=== PATIENT | female | born 1985 | race Two or more races ===

== ENCOUNTER 2016-10-30 06:35 | Emergency (ER) | payer MEDICAID ==
[~2016-10-30] VITALS: Ht 167.6 cm; Wt 70.3 kg
[~2016-10-30 06:35] MED LIST: HYDROCODON-ACE1 EA15 ORAL; IBUPROFEN600 MG ORAL; KEFLEX500 MG ORAL; LOPERAMIDE2 MG PO; NKM; PRILOSEC OTC20 MG ORAL; ZOFRAN4 M3 ORAL
[2016-10-30] MEDS ORDERED: Ketorolac 30mg Inj IV ONE (06:45)
--- NOTE | 2016-10-30 06:57 | Emergency Room Report ---
History of Present Illness General Chief Complaint: Abdominal Pain Source: Patient Present Illness HPI Patient presents with complaints of lower suprapubic abdominal pain Initially does report of right lower quadrant the patient points more to the suprapubic area Patient reports that is 4th day of her menstrual cycle She has flareups, during her menstrual cycles patient has been told that she has fibroids Denies any fevers or chills she did have increased nausea and vomiting Denies any dysuria frequency denies any fevers or chills Patient's had a previous appendectomy Allergies: Coded Allergies: No Known Allergies (Unverified , 04/14/16) Patient History Past Medical History: see triage record Pertinent Family History: none Last Menstrual Period: october Reviewed Nursing Documentation: PMH: Agreed, PSxH: Agreed Nursing Documentation-PMH Hx Gastrointestinal Problems: Yes - Apendectomy Review of Systems All Other Systems: negative except mentioned in HPI Physical Exam Vital Signs Date Time Temp Pulse Resp B/P Pulse Ox O2 Delivery O2 Flow Rate FiO2 10/30/16 06:38 97.9 67 18 134/88 99 Room Air Sp02 EP Interpretation: reviewed, normal General Appearance: mild distress - in acute pain Head: normocephalic, atraumatic Eyes: bilateral eye EOMI, bilateral eye PERRL ENT: hearing grossly normal, normal pharynx, TMs + canals normal, uvula midline Neck: full range of motion, supple, no meningismus, no bony tend Respiratory: lungs clear, normal breath sounds, no rhonchi, no respiratory distress, no retraction, no accessory muscle use Cardiovascular #1: normal peripheral pulses, regular rate, rhythm, no edema, no gallop, no JVD, no murmur Gastrointestinal: normal bowel sounds, soft, no mass, no organomegaly, non- distended, no guarding, no hernia, no pulsatile mass, no rebound, tenderness - Lower down in the abdomen over the suprapubic area deviating to the right side Genitourinary: no CVA tenderness Musculoskeletal: normal inspection Neurologic: oriented x3, responsive, information lead III-XII nml as tested, motor strength/ tone normal, sensory intact Psychiatric: mood/affect normal Skin: normal color, no rash, warm/dry, palpation normal Lymphatic: normal inspection, no adenopathy Medical Decision Making Diagnostic Impression: Primary Impression: Abdominal pain ER Course With the patient's history and examination, multiple differentials considered, including but not limited to , ectopic , ovarian torsion, gastritis, cholecystitis, pancreatitis, appendicitis Patient has had previous appendectomy Has had several CAT scans in the past Therefore I did try to avoid this test if not needed Patient's blood work is at baseline levels her pain has significantly improved At this time given the vomiting and diarrhea likely related to infectious pathology And the patient will have initial conservative outpatient trial Labs Test 10/30/16 06:50 White Blood Count 10.6 K/UL (4.8-10.8) Red Blood Count 4.87 M/UL (4.20-5.40) Hemoglobin 14.5 G/DL (12.0-16.0) Hematocrit 42.7 % (37.0-47.0) Mean Corpuscular Volume 88 FL (80-99) Mean Corpuscular Hemoglobin 29.7 PG (27.0-31.0) Mean Corpuscular Hemoglobin Concent 33.9 G/DL (32.0-36.0) Red Cell Distribution Width 12.3 % (11.6-14.8) Platelet Count 291 K/UL (150-450) Mean Platelet Volume 7.5 FL (6.5-10.1) Neutrophils (%) (Auto) 83.2 % (45.0-75.0) Lymphocytes (%) (Auto) 11.1 % (20.0-45.0) Monocytes (%) (Auto) 5.2 % (1.0-10.0) Eosinophils (%) (Auto) 0.1 % (0.0-3.0) Basophils (%) (Auto) 0.4 % (0.0-2.0) Urine Color Pale yellow Urine Appearance Clear Urine pH 6.5 (4.5-8.0) Urine Specific [place] 1.020 (1.005-1.035) Urine Protein 1+ (NEGATIVE) Urine Glucose (UA) Negative (NEGATIVE) Urine Ketones 1+ (NEGATIVE) Urine Occult Blood 5+ (NEGATIVE) Urine Nitrite Negative (NEGATIVE) Urine Bilirubin Negative (NEGATIVE) Urine Urobilinogen Normal MG/DL (0.0-1.0) Urine Leukocyte Esterase 2+ (NEGATIVE) Urine RBC 30-40 /HPF (0 - 2) Urine WBC 5-10 /HPF (0 - 2) Urine Squamous Epithelial Cells Few /LPF (NONE/OCC) Urine Bacteria Few /HPF (NONE) Urine HCG, Qualitative Negative Sodium Level 141 mEQ/L (135-145) Potassium Level 3.6 mEQ/L (3.4-4.9) Chloride Level 100 mEQ/L (98-107) Carbon Dioxide Level 25 mEQ/L (20-30) Anion Gap 16 (5-15) Blood Urea Nitrogen 8 mg/dL (7-23) Creatinine 0.7 mg/dL (0.5-0.9) Estimat Glomerular Filtration Rate > 60 mL/min (>60) Glucose Level 116 mg/dL (74-106) Calcium Level 9.3 mg/dL (8.6-10.2) Total Bilirubin 0.3 mg/dL (0.0-1.2) Aspartate Amino Transf (AST/SGOT) 18 U/L (5-40) Alanine Aminotransferase (ALT/SGPT) 19 U/L (3-33) Alkaline Phosphatase 74 U/L (35-104) Total Protein 7.5 g/dL (6.6-8.7) Albumin 4.6 g/dL (3.5-5.2) Globulin 2.9 g/dL Albumin/Globulin Ratio 1.5 (1.0-2.7) Lipase 26 U/L (< 60) Last Vital Signs Date Time Temp Pulse Resp B/P Pulse Ox O2 Delivery O2 Flow Rate FiO2 10/30/16 06:38 97.9 67 18 134/88 99 Room Air Status: improved Disposition: HOME, SELF-CARE Condition: Improved Scripts Acetaminophen With Codeine (T#3) (TYLENOL #3 TAB*) Y Tab 1 TAB ORAL Q8H Y for For Pain, #10 TAB Prov: NAN MARTNIEZ.O. 10/30/16 Ibuprofen* (MOTRIN*) 600 Mg Tablet 600 MG ORAL Q8H Y for For Pain, #20 TAB 0 Refills Prov: NAN MARTINEZ.OArianna 10/30/16 Nitrofurantoin Monohyd/M-Cryst* (MACROBID 100 MG*) 100 Mg Capsule 100 MG ORAL EVERY 12 HOURS for 5 Days, CAP Prov: NAN MARTINEZ.OArianna 10/30/16 Additional Instructions: Patient is provided with the discharge instructions notified to follow up with primary doctor in the next 2-3 days otherwise return to the er with any worsening symptoms. Please note that this report is being documented using [employer] technology. This can lead to erroneous entry secondary to incorrect interpretation by the dictating instrument. NAN MARTINEZ D.O. October 30, 2016 06:57
[2016-10-30] MEDS ORDERED: Tubing IV Cassette IV ONE (06:59)
[2016-10-30 07:09] LABS: BASOPHILS % (AUTO) 0.4 % (0.0-2.0); EOSINOPHILS % (AUTO) 0.1 % (0.0-3.0); LYMPHOCYTES % (AUTO) 11.1 % (20.0-45.0); MEAN CORPUSCULAR HEMOGLOBIN 29.7 PG (27.0-31.0); MEAN CORPUSCULAR HGB CONC 33.9 G/DL (32.0-36.0); MEAN CORPUSCULAR VOLUME 88 FL (80-99); MEAN PLATELET VOLUME 7.5 FL (6.5-10.1); MONOCYTES % (AUTO) 5.2 % (1.0-10.0); NEUTROPHILS % (AUTO) 83.2 % (45.0-75.0); PLATELET COUNT 291 K/UL (150-450); RED BLOOD COUNT 4.87 M/UL (4.20-5.40); RED CELL DISTRIBUTION WIDTH 12.3 % (11.6-14.8); WHITE BLOOD COUNT 10.6 K/UL (4.8-10.8)
[2016-10-30 07:13] LABS: APPEARANCE,URINE CLEAR; KETONES,URINE 1+ (NEGATIVE); LEUKOCYTE ESTERASE ,URINE 2+ (NEGATIVE); NITRITE,URINE NEGATIVE (NEGATIVE); PH,URINE 6.5 (4.5-8.0); PROTEIN,URINE 1+ (NEGATIVE); UROBILINOGEN,URINE NORMAL MG/DL (0.0-1.0)
[2016-10-30 07:21] LABS: ALANINE AMINOTRANSFERASE 19 U/L (3-33); ALBUMIN/GLOBULIN RATIO 1.5 (1.0-2.7); ANION GAP 16 (5-15); ASPARTATE AMINO TRANSFERASE 18 U/L (5-40); CALCIUM 9.3 mg/dL (8.6-10.2); CARBON DIOXIDE 25 mEQ/L (20-30); CHLORIDE 100 mEQ/L (98-107); CREATININE 0.7 mg/dL (0.5-0.9); GLOMERULAR FILTRATION RATE > 60 mL/min (>60); HEMOLYSIS 0; LIPASE 26 U/L (< 60); POTASSIUM 3.6 mEQ/L (3.4-4.9); SODIUM 141 mEQ/L (135-145); TOTAL PROTEIN 7.5 g/dL (6.6-8.7)
[2016-10-30] MEDS ORDERED: Morphine Sulfate 4mg/ml Inj IVP ONE (07:30)
[2016-10-30 07:31] LABS: RBC,URINE 30-40 /HPF (0 - 2)
[2016-10-30 07:32] LABS: BACTERIA,URINE FEW /HPF; SQUAMOUS EPITHELIAL CELL,UR FEW /LPF (NONE/OCC)
[2016-10-30] MEDS ORDERED: NITROFURANTOIN100 M2 ORAL (08:09)
[2016-10-30] MEDS ORDERED: ACETAMINOPHEN-1 EAC1 ORAL (08:09)
[2016-10-30] MEDS ORDERED: IBUPROFEN600 MG ORAL (08:09)
[2016-10-30 08:30] VITALS: BP 118/69
[2016-10-30 09:15] VITALS: BP 118/69
[2016-10-31] MEDS ORDERED: KEFLEX500 MG ORAL (18:45)
[2016-10-31] MEDS ORDERED: ZOFRAN4 M3 ORAL (18:46)
== END 2016-10-30 09:15 | disposition home or self-care (01) ==
LOC: EMR 06:50
DX: R10.30 Lower abdominal pain, unspecified (principal); Z90.49 Acquired absence of other specified parts of digestive tract
CPT/HCPCS: 36415; 80053; 81003; 81025; 83690; 85025; 96360; 96374; 96375; 99284; J1885; J2270; J2405; J7040

== ENCOUNTER 2016-10-31 16:17 | Emergency (ER) | payer MEDICAID ==
[~2016-10-31] VITALS: Ht 167.6 cm; Wt 70.3 kg
[~2016-10-31 16:17] MED LIST changes: +ACETAMINOPHEN-1 EAC1 ORAL; +NITROFURANTOIN100 M2 ORAL
--- NOTE | 2016-10-31 16:41 | Emergency Room Report ---
History of Present Illness General Chief Complaint: Abdominal Pain Source: Patient Present Illness HPI This is a 31-year-old female who presented after having increased abdominal pain. Patient having increased of burning sensation to her epigastric area associated with vomiting. Patient reported having recently been in the hospital for similar symptoms. Patient given prescription for codeine as well as antibiotics for urinary tract infection. Patient had reportedly been vomiting. She denied hematemesis. She denied any bloody stools. Patient reported having prior history of renal stones. She stated she is currently on her menses. Allergies: Coded Allergies: No Known Allergies (Unverified , 04/14/16) Patient History Past Medical History: see triage record Last Menstrual Period: 10/31/2016 Reviewed Nursing Documentation: PMH: Agreed, PSxH: Agreed Nursing Documentation-PMH Past Medical History: No Stated History Hx Gastrointestinal Problems: Yes - Apendectomy, gastritis Review of Systems All Other Systems: negative except mentioned in HPI Physical Exam Vital Signs Date Time Temp Pulse Resp B/P Pulse Ox O2 Delivery O2 Flow Rate FiO2 10/31/16 16:24 97.2 55 19 143/82 100 Sp02 EP Interpretation: reviewed, normal General Appearance: normal inspection, well appearing, no apparent distress, alert, GCS 15, non-toxic Head: atraumatic ENT: normal ENT inspection, hearing grossly normal, normal voice Neck: normal inspection, full range of motion, supple, no bony tend Respiratory: normal inspection, lungs clear, normal breath sounds, no respiratory distress, no retraction, no wheezing Cardiovascular #1: regular rate, rhythm, no edema Gastrointestinal: normal inspection, normal bowel sounds, non tender, soft, no guarding, no hernia Genitourinary: no CVA tenderness Musculoskeletal: normal inspection, back normal, normal range of motion Neurologic: normal inspection, alert, responsive, speech normal Psychiatric: normal inspection, judgement/insight normal, mood/affect normal Skin: normal inspection, normal color, no rash Medical Decision Making Diagnostic Impression: Primary Impression: Abdominal pain Additional Impression: UTI (urinary tract infection) ER Course Patient presented for abdominal pain. Differential diagnoses included ischemic bowel, appendicitis, perforated viscus, abdominal aortic aneurysm, inferior myocardial infarction, viral gastroenteritis Because of complexity of patient's case laboratory testing and imaging studies were ordered. The patient was given IV pain medications as well as IV antibiotics. Patient was given prescription for antiemetics. The patient does not appear to have a surgical abdomen at this time. Patient's pain appears to be related to urinary tract infection. The patient was given prescription for antiemetics. She is advised to followup with her primary care physician in the next one to 2 days for recheck. The patient was given return precautions. Labs Test 10/31/16 16:40 White Blood Count 12.2 K/UL (4.8-10.8) Red Blood Count 4.54 M/UL (4.20-5.40) Hemoglobin 14.6 G/DL (12.0-16.0) Hematocrit 40.5 % (37.0-47.0) Mean Corpuscular Volume 89 FL (80-99) Mean Corpuscular Hemoglobin 32.1 PG (27.0-31.0) Mean Corpuscular Hemoglobin Concent 36.0 G/DL (32.0-36.0) Red Cell Distribution Width 12.1 % (11.6-14.8) Platelet Count 258 K/UL (150-450) Mean Platelet Volume 6.7 FL (6.5-10.1) Neutrophils (%) (Auto) 75.8 % (45.0-75.0) Lymphocytes (%) (Auto) 14.8 % (20.0-45.0) Monocytes (%) (Auto) 7.7 % (1.0-10.0) Eosinophils (%) (Auto) 0.9 % (0.0-3.0) Basophils (%) (Auto) 0.7 % (0.0-2.0) Urine Color Yellow Urine Appearance Clear Urine pH 6.5 (4.5-8.0) Urine Specific [place] 1.015 (1.005-1.035) Urine Protein 1+ (NEGATIVE) Urine Glucose (UA) Negative (NEGATIVE) Urine Ketones 1+ (NEGATIVE) Urine Occult Blood 4+ (NEGATIVE) Urine Nitrite Negative (NEGATIVE) Urine Bilirubin Negative (NEGATIVE) Urine Urobilinogen Normal MG/DL (0.0-1.0) Urine Leukocyte Esterase 2+ (NEGATIVE) Urine RBC 2-4 /HPF (0 - 2) Urine WBC 5-10 /HPF (0 - 2) Urine Squamous Epithelial Cells Moderate /LPF (NONE/OCC) Urine Bacteria Few /HPF (NONE) Urine HCG, Qualitative Negative Sodium Level 141 mEQ/L (135-145) Potassium Level 3.5 mEQ/L (3.4-4.9) Chloride Level 102 mEQ/L (98-107) Carbon Dioxide Level 27 mEQ/L (20-30) Anion Gap 12 (5-15) Blood Urea Nitrogen 10 mg/dL (7-23) Creatinine 0.8 mg/dL (0.5-0.9) Estimat Glomerular Filtration Rate > 60 mL/min (>60) Glucose Level 110 mg/dL (74-106) Calcium Level 8.9 mg/dL (8.6-10.2) Total Bilirubin 0.3 mg/dL (0.0-1.2) Aspartate Amino Transf (AST/SGOT) 20 U/L (5-40) Alanine Aminotransferase (ALT/SGPT) 17 U/L (3-33) Alkaline Phosphatase 65 U/L (35-104) Total Protein 6.7 g/dL (6.6-8.7) Albumin 3.9 g/dL (3.5-5.2) Globulin 2.8 g/dL Albumin/Globulin Ratio 1.3 (1.0-2.7) Lipase 45 U/L (< 60) Last Vital Signs Date Time Temp Pulse Resp B/P Pulse Ox O2 Delivery O2 Flow Rate FiO2 10/31/16 16:24 97.2 55 19 143/82 100 Status: improved Disposition: HOME, SELF-CARE Condition: Stable Scripts Ondansetron* (ZOFRAN*) 4 Mg Tablet 4 MG ORAL Q6H Y for Nausea & Vomiting, #20 TAB Prov: Miah Lea 10/31/16 Cephalexin* (KEFLEX*) 500 Mg Capsule 500 MG ORAL Q6H, #28 CAP 0 Refills Prov: Miah Lea 10/31/16 Miah Lea October 31, 2016 16:41
[2016-10-31] MEDS ORDERED: Ketorolac 30mg Inj IV ONE (16:45)
[2016-10-31] MEDS ORDERED: Famotidine 20 MG/ 2ML VIAL IVP ONE (16:45)
[2016-10-31 16:59] LABS: BASOPHILS % (AUTO) 0.7 % (0.0-2.0); EOSINOPHILS % (AUTO) 0.9 % (0.0-3.0); LYMPHOCYTES % (AUTO) 14.8 % (20.0-45.0); MEAN CORPUSCULAR HEMOGLOBIN 32.1 PG (27.0-31.0); MEAN CORPUSCULAR VOLUME 89 FL (80-99); MEAN PLATELET VOLUME 6.7 FL (6.5-10.1); MONOCYTES % (AUTO) 7.7 % (1.0-10.0); NEUTROPHILS % (AUTO) 75.8 % (45.0-75.0); PLATELET COUNT 258 K/UL (150-450); RED BLOOD COUNT 4.54 M/UL (4.20-5.40); RED CELL DISTRIBUTION WIDTH 12.1 % (11.6-14.8); WHITE BLOOD COUNT 12.2 K/UL (4.8-10.8)
[2016-10-31 17:09] LABS: APPEARANCE,URINE CLEAR; KETONES,URINE 1+ (NEGATIVE); LEUKOCYTE ESTERASE ,URINE 2+ (NEGATIVE); NITRITE,URINE NEGATIVE (NEGATIVE); PH,URINE 6.5 (4.5-8.0); PROTEIN,URINE 1+ (NEGATIVE); UROBILINOGEN,URINE NORMAL MG/DL (0.0-1.0)
[2016-10-31 17:16] LABS: BACTERIA,URINE FEW /HPF; SQUAMOUS EPITHELIAL CELL,UR MODERATE /LPF (NONE/OCC)
[2016-10-31 17:17] LABS: ALANINE AMINOTRANSFERASE 17 U/L (3-33); ALBUMIN/GLOBULIN RATIO 1.3 (1.0-2.7); ANION GAP 12 (5-15); ASPARTATE AMINO TRANSFERASE 20 U/L (5-40); CALCIUM 8.9 mg/dL (8.6-10.2); CARBON DIOXIDE 27 mEQ/L (20-30); CHLORIDE 102 mEQ/L (98-107); CREATININE 0.8 mg/dL (0.5-0.9); GLOMERULAR FILTRATION RATE > 60 mL/min (>60); HEMOLYSIS 7; LIPASE 45 U/L (< 60); POTASSIUM 3.5 mEQ/L (3.4-4.9); SODIUM 141 mEQ/L (135-145); TOTAL PROTEIN 6.7 g/dL (6.6-8.7)
[2016-10-31] MEDS ORDERED: cefTRIAXone 1 GM in NS 55 ML IVPB ONE (17:30)
[2016-10-31 18:00] VITALS: BP 143/75
[2016-10-31] MEDS ORDERED: Morphine Sulfate 4mg/ml Inj IVP ONE (18:00)
[2016-10-31] MEDS ORDERED: KEFLEX500 MG ORAL (18:45)
[2016-10-31] MEDS ORDERED: ZOFRAN4 M3 ORAL (18:46)
[2016-10-31 18:57] VITALS: BP 127/67
== END 2016-10-31 18:59 | disposition home or self-care (01) ==
LOC: EMR 16:59
DX: R10.9 Unspecified abdominal pain (principal); N39.0 Urinary tract infection, site not specified; R11.10 Vomiting, unspecified; Z87.442 Personal history of urinary calculi; Z90.89 Acquired absence of other organs
CPT/HCPCS: 36415; 80053; 81003; 81025; 83690; 85025; 96360; 96374; 96375; 99284; J0696; J1885; J2270; J2405; S0028

== ENCOUNTER 2016-11-29 16:03 | Emergency (ER) | payer MEDICAID ==
[~2016-11-29] VITALS: Ht 167.6 cm; Wt 70.3 kg
[2016-11-29] MEDS ORDERED: Ketorolac 30mg Inj IM ONE (16:30)
[2016-11-29 16:43] LABS: APPEARANCE,URINE CLOUDY; KETONES,URINE 2+ (NEGATIVE); LEUKOCYTE ESTERASE ,URINE 1+ (NEGATIVE); NITRITE,URINE NEGATIVE (NEGATIVE); PH,URINE 5 (4.5-8.0); PROTEIN,URINE 2+ (NEGATIVE); UROBILINOGEN,URINE NORMAL MG/DL (0.0-1.0)
[2016-11-29 17:10] LABS: RBC,URINE TNTC /HPF (0 - 2)
[2016-11-29 17:13] LABS: BACTERIA,URINE MODERATE /HPF; SQUAMOUS EPITHELIAL CELL,UR FEW /LPF (NONE/OCC)
[2016-11-29] MEDS ORDERED: IBUPROFEN600 MG ORAL (17:43)
[2016-11-29] MEDS ORDERED: NITROFURANTOIN100 M2 ORAL (17:43)
[2016-11-29] MEDS ORDERED: Ketorolac 30mg Inj IV ONE (17:45)
[2016-11-29 18:20] VITALS: BP 131/78
--- NOTE | 2016-11-29 20:03 | Emergency Room Report ---
History of Present Illness General Chief Complaint: Abdominal Pain Source: Patient Present Illness HPI The patient is a 31-year-old female with a history of uterine fibroids and ovarian cysts presenting for abdominal pain and increased vaginal bleeding during menstruation. The patient states that she frequently has painful menstruations and this feels the same. The patient was seen in this emergency department for the same complaint 3 months prior and workup was unremarkable. The patient was told to followup with [facility] but she has not been able to. She has tried Tylenol at home which has not helped. Pain described as a 10 out of 10 dull ache to the mid lower abdomen and does not radiate. Pain is constant. No known provoking or relieving factors. Denies any other symptoms including N, V, F, chills, flank pain, diarrhea, constipation Allergies: Coded Allergies: No Known Allergies (Unverified , 04/14/16) Patient History Past Medical History: see triage record Pertinent Family History: none Last Menstrual Period: now Now: No Reviewed Nursing Documentation: PMH: Agreed, PSxH: Agreed Nursing Documentation-PMH Past Medical History: No History, Except For Hx Gastrointestinal Problems: Yes - Apendectomy, gastritis Review of Systems All Other Systems: negative except mentioned in HPI Physical Exam Vital Signs Date Time Temp Pulse Resp B/P Pulse Ox O2 Delivery O2 Flow Rate FiO2 11/29/16 16:06 98.4 64 18 132/67 98 Room Air Sp02 EP Interpretation: reviewed, normal General Appearance: no apparent distress, alert, GCS 15, non-toxic Head: normocephalic, atraumatic Eyes: bilateral eye PERRL, bilateral eye normal inspection ENT: hearing grossly normal, normal pharynx, no angioedema, normal voice Neck: full range of motion, supple/symm/no masses Respiratory: chest non-tender, lungs clear, normal breath sounds, speaking full sentences Gastrointestinal: normal bowel sounds, soft, non-distended, no guarding, no rebound, tenderness - Suprapubic Genitourinary: normal inspection, no CVA tenderness Musculoskeletal: back normal, gait/station normal, normal range of motion, non- tender Neurologic: alert, oriented x3, responsive, motor strength/tone normal, sensory intact, speech normal Psychiatric: judgement/insight normal, memory normal, mood/affect normal, no suicidal/homicidal ideation Skin: normal color, no rash, warm/dry, well hydrated Lymphatic: no adenopathy Medical Decision Making PA Attestation Dr. Hernandez is my supervising physician. Patient management was discussed with my supervising physician Diagnostic Impression: Primary Impression: Dysmenorrhea ER Course The patient is a 31-year-old female presenting with increased pain and vaginal bleeding during menstruation DDx considered but not limited to: UTI, fibroids, STD, ovarian cyst, dysmenorrhea, , among others PE: Vitals WNL. NAD. Abdomen: Normal appearance. Non distended. No ecchymosis. Normal BS. TTP over suprapubic region only. No McBurney point tenderness. No guarding. No CVA tenderness UA shows blood, WBCs, and moderate bacteria Pt is given IV Toradol for pain and will be HI'ed home with prescription for macrobid and motrin. She need sto FU with PMD and OBGYN. ER precautions given Laboratory Tests Test 11/29/16 16:12 Urine Color Pale yellow Urine Appearance Cloudy Urine pH 5 (4.5-8.0) Urine Specific [place] 1.020 (1.005-1.035) Urine Protein 2+ (NEGATIVE) H Urine Glucose (UA) Negative (NEGATIVE) Urine Ketones 2+ (NEGATIVE) H Urine Occult Blood 5+ (NEGATIVE) H Urine Nitrite Negative (NEGATIVE) Urine Bilirubin Negative (NEGATIVE) Urine Urobilinogen Normal MG/DL (0.0-1.0) Urine Leukocyte Esterase 1+ (NEGATIVE) H Urine RBC Tntc /HPF (0 - 2) H Urine WBC 10-15 /HPF (0 - 2) H Urine Squamous Epithelial Cells Few /LPF (NONE/OCC) Urine Bacteria Moderate /HPF (NONE) H Urine HCG, Qualitative Negative Lab Results Impression UA: blood, 10-15 WBCs, and moderate bacteria. Negative nitrites. Neg preg Last Vital Signs Date Time Temp Pulse Resp B/P Pulse Ox O2 Delivery O2 Flow Rate FiO2 11/29/16 18:20 98.4 43 16 131/78 98 Room Air Status: improved Disposition: HOME, SELF-CARE Condition: Improved Scripts Nitrofurantoin Monohyd/M-Cryst* (MACROBID 100 MG*) 100 Mg Capsule 100 MG ORAL EVERY 12 HOURS, #14 CAP Prov: TERZIAN,RHETT P.A. 11/29/16 Ibuprofen* (MOTRIN*) 600 Mg Tablet 600 MG ORAL Q8H Y for For Pain, #30 TAB 0 Refills Prov: RHETT DE PAZ 11/29/16 Patient Instructions: Abdominal Pain, Adult, Dysmenorrhea Additional Instructions: I discussed my findings with the patient. All questions and concerns have been answered. Treatment and medication compliance have been addressed. I advised the patient that they need to follow up with PMD in 3-5 days. Return to ED if symptoms worsen, new symptoms arise, or if needed for any reason. Patient verbalized understanding of discharge instructions. Patient will follow up with OBGYN as soon as possible RHETT DE PAZ Nov 29, 2016 20:03
== END 2016-11-29 18:20 | disposition home or self-care (01) ==
LOC: EMR 16:30
DX: N94.6 Dysmenorrhea, unspecified (principal); Z90.89 Acquired absence of other organs
CPT/HCPCS: 81003; 81025; 87086; 96374; 99284; J1885

== ENCOUNTER 2017-05-02 10:04 | Emergency (ER) | payer MEDICAID ==
[~2017-05-02] VITALS: Ht 167.6 cm; Wt 70.3 kg
[2017-05-02 10:10] VITALS: BP 124/79
--- NOTE | 2017-05-02 10:38 | Emergency Room Report ---
History of Present Illness General Chief Complaint: Abdominal Pain Source: Patient Present Illness HPI Patient presents with complaints of pain to the suprapubic lower abdominal region Pain started during her menstrual cycle however her menstrual cycle ended and the patient has continued with the discomfort denies any chest pain or shortness of breath Patient in the suprapubic area does go toward the back Patient denies any dysuria however complain of some vaginal discharge patient reports that she was seen by her primary physician and has referral for gynecology Denies any fall or trauma Allergies: Coded Allergies: No Known Allergies (Unverified , 04/14/16) Patient History Past Medical History: see triage record Pertinent Family History: none Last Menstrual Period: 04/19/17 Now: No Reviewed Nursing Documentation: PMH: Agreed, PSxH: Agreed Nursing Documentation-PMH Hx Gastrointestinal Problems: Yes - S/P appy 15 years ago Review of Systems All Other Systems: negative except mentioned in HPI Physical Exam Vital Signs Date Time Temp Pulse Resp B/P (MAP) Pulse Ox O2 Delivery O2 Flow Rate FiO2 05/02/17 10:07 98.1 69 16 126/85 98 Room Air Sp02 EP Interpretation: reviewed, normal General Appearance: well appearing, no apparent distress Head: normocephalic, atraumatic Eyes: bilateral eye PERRL, bilateral eye EOMI ENT: hearing grossly normal, normal pharynx, TMs + canals normal, uvula midline Neck: full range of motion, supple, no meningismus, no bony tend Respiratory: lungs clear, normal breath sounds, no rhonchi, no respiratory distress, no retraction, no accessory muscle use Cardiovascular #1: normal peripheral pulses, regular rate, rhythm, no edema, no gallop, no JVD, no murmur Gastrointestinal: normal bowel sounds, non tender, soft, no mass, no organomegaly, non-distended, no guarding, no hernia, no pulsatile mass, no rebound Genitourinary: no CVA tenderness Musculoskeletal: normal inspection Neurologic: oriented x3, responsive, mri assistant III-XII nml as tested, motor strength/ tone normal, sensory intact Psychiatric: mood/affect normal Skin: normal color, no rash, warm/dry, palpation normal Lymphatic: normal inspection, no adenopathy Medical Decision Making Diagnostic Impression: Primary Impression: Abdominal pain Additional Impression: UTI (urinary tract infection) ER Course With the patient's history and examination, multiple differentials considered, including but not limited to , ectopic , ovarian torsion, gastritis, cholecystitis, pancreatitis, appendicitis Patient has had previous CAT scan imaging her Patient also reports previous ultrasonography and history of fibroids At this time a urine sample does show small amount of bacteria Given the radiation towards the back she was treated with antibiotics Patient is understanding of the need for close outpatient gynecology followup Labs Test 05/02/17 10:20 05/02/17 10:38 Urine Color Pale yellow Urine Appearance Clear Urine pH 5 (4.5-8.0) Urine Specific [place] 1.020 (1.005-1.035) Urine Protein Negative (NEGATIVE) Urine Glucose (UA) Negative (NEGATIVE) Urine Ketones Negative (NEGATIVE) Urine Occult Blood 1+ (NEGATIVE) Urine Nitrite Negative (NEGATIVE) Urine Bilirubin Negative (NEGATIVE) Urine Urobilinogen Normal MG/DL (0.0-1.0) Urine Leukocyte Esterase 2+ (NEGATIVE) Urine RBC 0-2 /HPF (0 - 2) Urine WBC 2-4 /HPF (0 - 2) Urine Squamous Epithelial Cells Moderate /LPF (NONE/OCC) Urine Bacteria Few /HPF (NONE) Urine Mucus Few /LPF (NONE/OCC) Urine HCG, Qualitative Negative White Blood Count 7.0 K/UL (4.8-10.8) Red Blood Count 4.92 M/UL (4.20-5.40) Hemoglobin 14.6 G/DL (12.0-16.0) Hematocrit 45.1 % (37.0-47.0) Mean Corpuscular Volume 92 FL (80-99) Mean Corpuscular Hemoglobin 29.6 PG (27.0-31.0) Mean Corpuscular Hemoglobin Concent 32.3 G/DL (32.0-36.0) Red Cell Distribution Width 12.1 % (11.6-14.8) Platelet Count 297 K/UL (150-450) Mean Platelet Volume 6.2 FL (6.5-10.1) Neutrophils (%) (Auto) 49.0 % (45.0-75.0) Lymphocytes (%) (Auto) 39.1 % (20.0-45.0) Monocytes (%) (Auto) 9.3 % (1.0-10.0) Eosinophils (%) (Auto) 1.6 % (0.0-3.0) Basophils (%) (Auto) 1.0 % (0.0-2.0) Sodium Level 138 MMOL/L (136-145) Potassium Level 5.3 MMOL/L (3.5-5.1) Chloride Level 104 MMOL/L (98-107) Carbon Dioxide Level 26 MMOL/L (21-32) Anion Gap 8 mmol/L (5-15) Blood Urea Nitrogen 13 mg/dL (7-18) Creatinine 0.7 MG/DL (0.55-1.30) Estimat Glomerular Filtration Rate > 60 mL/min (>60) Glucose Level 81 MG/DL (74-106) Calcium Level 9.3 MG/DL (8.5-10.1) Last Vital Signs Date Time Temp Pulse Resp B/P (MAP) Pulse Ox O2 Delivery O2 Flow Rate FiO2 05/02/17 10:07 98.1 69 16 126/85 98 Room Air Status: improved Disposition: HOME, SELF-CARE Condition: Improved Scripts Ibuprofen* (MOTRIN*) 600 Mg Tablet 600 MG ORAL Q8H Y for For Pain, #20 TAB 0 Refills Prov: NAN MARTINEZ D.O. 05/02/17 Trimethoprim/Sulfamethoxazole 160/800* (BACTRIM DS TABLET*) 1 Each Tablet 1 TAB ORAL Q12H, #14 TAB 0 Refills Prov: NAN MARTINEZ D.O. 05/02/17 Referrals: NON PHYSICIAN (PCP) Additional Instructions: Patient is provided with the discharge instructions notified to follow up with primary doctor in the next 2-3 days otherwise return to the er with any worsening symptoms. Please note that this report is being documented using [employer] technology. This can lead to erroneous entry secondary to incorrect interpretation by the dictating instrument. NAN MARTINEZ D.O. May 02, 2017 10:37
[2017-05-02] MEDS ORDERED: Ketorolac 60mg Inj IM ONE (10:45)
[2017-05-02] MEDS ORDERED: Norco 10mg/325mg tab ORAL ONE (10:45)
[2017-05-02 10:48] LABS: APPEARANCE,URINE CLEAR; BILIRUBIN, URINE NEGATIVE (NEGATIVE); COLOR,URINE PALE YELLOW; GLUCOSE, URINE (UA) NEGATIVE (NEGATIVE); KETONES,URINE NEGATIVE (NEGATIVE); NITRITE,URINE NEGATIVE (NEGATIVE); PH,URINE 5 (4.5-8.0); PROTEIN,URINE NEGATIVE (NEGATIVE); UROBILINOGEN,URINE NORMAL MG/DL (0.0-1.0)
[2017-05-02 10:49] LABS: EOSINOPHILS % (AUTO) 1.6 % (0.0-3.0); HEMATOCRIT 45.1 % (37.0-47.0); HEMOGLOBIN 14.6 G/DL (12.0-16.0); LYMPHOCYTES % (AUTO) 39.1 % (20.0-45.0); MEAN CORPUSCULAR VOLUME 92 FL (80-99); MONOCYTES % (AUTO) 9.3 % (1.0-10.0); PLATELET COUNT 297 K/UL (150-450); RED BLOOD COUNT 4.92 M/UL (4.20-5.40); RED CELL DISTRIBUTION WIDTH 12.1 % (11.6-14.8)
[2017-05-02 11:00] LABS: LEUKOCYTE ESTERASE ,URINE 2+ (NEGATIVE)
[2017-05-02 11:01] LABS: ANION GAP 8 mmol/L (5-15); BLOOD UREA NITROGEN 13 mg/dL (7-18); CALCIUM 9.3 MG/DL (8.5-10.1); CARBON DIOXIDE 26 MMOL/L (21-32); CHLORIDE 104 MMOL/L (98-107); CREATININE 0.7 MG/DL (0.55-1.30); POTASSIUM 5.3 MMOL/L (3.5-5.1); SODIUM 138 MMOL/L (136-145)
[2017-05-02 12:04] VITALS: BP 120/77
[2017-05-02] MEDS ORDERED: BACTRIM DS TAB1 EAC1 ORAL (12:39)
[2017-05-02] MEDS ORDERED: IBUPROFEN600 MG ORAL (12:39)
[2017-05-02 12:45] VITALS: BP 120/77
== END 2017-05-02 12:45 | disposition home or self-care (01) ==
LOC: EMR 10:31
DX: R10.30 Lower abdominal pain, unspecified (principal); N39.0 Urinary tract infection, site not specified
CPT/HCPCS: 36415; 80048; 81003; 81025; 85025; 96372; 99283

== ENCOUNTER 2017-06-28 13:48 | Emergency (ER) | payer MEDICAID ==
[~2017-06-28] VITALS: Ht 167.6 cm; Wt 78.5 kg
[~2017-06-28 13:48] MED LIST changes: +BACTRIM DS TAB1 EAC1 ORAL
[2017-06-28 14:31] LABS: APPEARANCE,URINE CLEAR; BILIRUBIN, URINE NEGATIVE (NEGATIVE); COLOR,URINE PALE YELLOW; GLUCOSE, URINE (UA) NEGATIVE (NEGATIVE); KETONES,URINE NEGATIVE (NEGATIVE); LEUKOCYTE ESTERASE ,URINE 3+ (NEGATIVE); NITRITE,URINE NEGATIVE (NEGATIVE); PH,URINE 6 (4.5-8.0); PROTEIN,URINE NEGATIVE (NEGATIVE); UROBILINOGEN,URINE NORMAL MG/DL (0.0-1.0)
[2017-06-28 15:10] LABS: BASOPHILS % (AUTO) 0.5 % (0.0-2.0); EOSINOPHILS % (AUTO) 0.8 % (0.0-3.0); HEMOGLOBIN 13.7 G/DL (12.0-16.0); MEAN CORPUSCULAR VOLUME 88 FL (80-99); MONOCYTES % (AUTO) 10.3 % (1.0-10.0); NEUTROPHILS % (AUTO) 58.5 % (45.0-75.0); PLATELET COUNT 269 K/UL (150-450); RED BLOOD COUNT 4.65 M/UL (4.20-5.40); RED CELL DISTRIBUTION WIDTH 12.3 % (11.6-14.8)
[2017-06-28 15:24] LABS: ANION GAP 9 mmol/L (5-15); BLOOD UREA NITROGEN 9 mg/dL (7-18); CALCIUM 8.3 MG/DL (8.5-10.1); CARBON DIOXIDE 26 MMOL/L (21-32); CHLORIDE 103 MMOL/L (98-107); CREATININE 0.7 MG/DL (0.55-1.30); POTASSIUM 3.5 MMOL/L (3.5-5.1); SODIUM 138 MMOL/L (136-145)
[2017-06-28 15:27] LABS: ALANINE AMINOTRANSFERASE 33 U/L (12-78); ALBUMIN 3.7 G/DL (3.4-5.0); ALBUMIN/GLOBULIN RATIO 0.9 (1.0-2.7); ALKALINE PHOSPHATASE 61 U/L (46-116); ASPARTATE AMINO TRANSFERASE 21 U/L (15-37); BILIRUBIN,TOTAL 0.4 MG/DL (0.2-1.0)
[2017-06-28] MEDS ORDERED: FLAGYL500 MG ORAL (17:17)
[2017-06-28] MEDS ORDERED: PRENATAL VITAM1 EACH PO (17:17)
[2017-06-28 17:40] VITALS: BP 124/76
--- NOTE | 2017-06-28 22:55 | Emergency Room Report ---
History of Present Illness General Chief Complaint: Complications Source: Patient Present Illness HPI The patient is a 31-year-old female at approximately 4 weeks gestation by dates presenting for abdominal pain and vaginal bleeding since yesterday. She states that abdominal pain is a cramping sensation described as a 5/10. Does not radiate from the mid lower abdomen. She has also been having a white vaginal discharge with foul odor for the past week. Vaginal bleeding described as bright red blood on toilet paper with wiping. She has not had any discharge. She denies dysuria or back pain. She denies any other symptoms including fever or chills Allergies: Coded Allergies: No Known Allergies (Unverified , 04/14/16) Patient History Past Medical History: see triage record Pertinent Family History: none Last Menstrual Period: 05/17/17 Now: Yes - Approx 4 weeks. : 3 Para: 2 Reviewed Nursing Documentation: PMH: Agreed, PSxH: Agreed Nursing Documentation-PMH Hx Gastrointestinal Problems: Yes - Appendectomy Review of Systems All Other Systems: negative except mentioned in HPI Physical Exam Vital Signs Date Time Temp Pulse Resp B/P (MAP) Pulse Ox O2 Delivery O2 Flow Rate FiO2 06/28/17 14:04 97.9 70 19 122/79 99 Room Air Sp02 EP Interpretation: reviewed, normal General Appearance: no apparent distress, alert, GCS 15, non-toxic Head: normocephalic, atraumatic Eyes: bilateral eye normal inspection, bilateral eye PERRL ENT: hearing grossly normal, normal pharynx, no angioedema, normal voice Cardiovascular #1: regular rate, rhythm, no edema Gastrointestinal: normal bowel sounds, soft, non-distended, no guarding, no rebound, tenderness - suprapubic Genitourinary: normal inspection, no CVA tenderness Musculoskeletal: back normal, gait/station normal, normal range of motion, non- tender Neurologic: alert, oriented x3, responsive, motor strength/tone normal, sensory intact, speech normal Psychiatric: judgement/insight normal, memory normal, mood/affect normal, no suicidal/homicidal ideation Skin: normal color, no rash, warm/dry, well hydrated Medical Decision Making PA Attestation Dr. Daugherty is my supervising physician. Patient management was discussed with my supervising physician Diagnostic Impression: Primary Impression: Bacterial vaginosis Additional Impression: Threatened miscarriage ER Course The patient is a 31-year-old female at approximately 4 weeks gestation by dates presenting for abdominal pain and vaginal bleeding since yesterday Differential diagnoses considered include but not limited to Early , threatened , incomplete ,ectopic , hemorrhagic cyst, BV , UTI, among others PE: NAD Abdomen is soft. There is tenderness to palpation over suprapubic region only. 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 No adnexal mass. No pole is seen. Beta-hCG appropriate for gestational age. Otherwise labs unremarkable The patient was informed of these results and needs to followup with her OB as soon as possible. This must be done within 2 days. She needs repeat testing done. She agrees with this plan. She will return to emergency Department if she is unable to followup with her OB. ER precautions are given She'll be treated for BV due to white vaginal discharge, foul odor, and white blood cells with some squamous cells Laboratory Tests Test 06/28/17 14:13 06/28/17 14:55 Urine Color Pale yellow Urine Appearance Clear Urine pH 6 (4.5-8.0) Urine Specific [place] 1.015 (1.005-1.035) Urine Protein Negative (NEGATIVE) Urine Glucose (UA) Negative (NEGATIVE) Urine Ketones Negative (NEGATIVE) Urine Occult Blood 3+ (NEGATIVE) H Urine Nitrite Negative (NEGATIVE) Urine Bilirubin Negative (NEGATIVE) Urine Urobilinogen Normal MG/DL (0.0-1.0) Urine Leukocyte Esterase 3+ (NEGATIVE) H Urine RBC 2-4 /HPF (0 - 2) H Urine WBC 5-10 /HPF (0 - 2) H Urine Squamous Epithelial Cells Moderate /LPF (NONE/OCC) H Urine Bacteria Few /HPF (NONE) White Blood Count 8.0 K/UL (4.8-10.8) Red Blood Count 4.65 M/UL (4.20-5.40) Hemoglobin 13.7 G/DL (12.0-16.0) Hematocrit 41.0 % (37.0-47.0) Mean Corpuscular Volume 88 FL (80-99) Mean Corpuscular Hemoglobin 29.6 PG (27.0-31.0) Mean Corpuscular Hemoglobin Concent 33.6 G/DL (32.0-36.0) Red Cell Distribution Width 12.3 % (11.6-14.8) Platelet Count 269 K/UL (150-450) Mean Platelet Volume 6.3 FL (6.5-10.1) L Neutrophils (%) (Auto) 58.5 % (45.0-75.0) Lymphocytes (%) (Auto) 30.0 % (20.0-45.0) Monocytes (%) (Auto) 10.3 % (1.0-10.0) H Eosinophils (%) (Auto) 0.8 % (0.0-3.0) Basophils (%) (Auto) 0.5 % (0.0-2.0) Prothrombin Time 9.8 SEC (9.30-11.50) Prothrombin Time INR 1.0 (0.9-1.1) PTT 28 SEC (23-33) Sodium Level 138 MMOL/L (136-145) Potassium Level 3.5 MMOL/L (3.5-5.1) Chloride Level 103 MMOL/L (98-107) Carbon Dioxide Level 26 MMOL/L (21-32) Anion Gap 9 mmol/L (5-15) Blood Urea Nitrogen 9 mg/dL (7-18) Creatinine 0.7 MG/DL (0.55-1.30) Estimate Glomerular Filtration Rate > 60 mL/min (>60) Glucose Level 68 MG/DL (74-106) L Calcium Level 8.3 MG/DL (8.5-10.1) L Total Bilirubin 0.4 MG/DL (0.2-1.0) Aspartate Amino Transferase (AST) 21 U/L (15-37) Alanine Aminotransferase (ALT) 33 U/L (12-78) Alkaline Phosphatase 61 U/L (46-116) Total Protein 7.6 G/DL (6.4-8.2) Albumin 3.7 G/DL (3.4-5.0) Globulin 3.9 g/dL Albumin/Globulin Ratio 0.9 (1.0-2.7) L Lipase 132 U/L (73-393) Human Chorionic Gonadotropin, Quant 79138 mIU/mL (1-6) H Lab Results Impression Blood work unremarkable. Beta hCG appropriate for gestational age. 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 No adnexal mass. No pole is seen Last Vital Signs Date Time Temp Pulse Resp B/P (MAP) Pulse Ox O2 Delivery O2 Flow Rate FiO2 06/28/17 17:40 98.0 80 18 124/76 100 Room Air Status: improved Disposition: HOME, SELF-CARE Condition: Improved Scripts Vits W-Ca,Fe,Fa(<1MG) ( VITAMINS) 1 Each Tablet 1 EACH PO DAILY, #30 TAB Prov: RHETT DE PAZ P.A. 06/28/17 Metronidazole* (FLAGYL*) 500 Mg Tablet 500 MG ORAL Q12HR, #14 TAB Prov: RHETT DE PAZ P.A. 06/28/17 Patient Instructions: Bacterial Vaginosis Additional Instructions: I discussed my findings with the patient. All questions and concerns have been answered. Treatment and medication compliance have been addressed. I informed the patient that she needs to followup with her OB doctor as soon as possible for further evaluation. She will need repeat testing as well as repeat ultrasound. The ultrasound report was given to the patient.. Return to emergency Department if you notice any symptoms including continued or worsened bleeding, abdominal pain, or for any other reason RHETT DE PAZ Jun 28, 2017 22:55
--- NOTE | 2017-06-29 12:04 | Diagnostic Imaging Report ---
Indication: Positive test. Pelvic pain. Vaginal spotting Read LMP 05/17/2017. Beta hCG approximately 25,000 Technique: Grayscale and duplex Doppler imaging of the pelvis performed utilizing a transabdominal scan and endovaginal scan. Comparison: None Findings: The uterus measures 0.5 x 7.6 x 5.1 cm. 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 2 gestational sacs are noted, one in each of the uterine horns. No yolk sac or pole is identified in either gestational sac. Gestational age by gestational sac diameter corresponding to approximally 5 weeks. A probable fibroid at the fundus of one of the moieties measures up to 3.5 cm in diameter. The right ovary measures 4.1 x 4.2 x 2 cm/18.3 mL. The left ovary measures 4.2 x 3.7 x 2.4 centers/19.6 mL. There is a cyst with lacy internal echoes in the left ovary which measures up to 3.2 cm in diameter compatible with a hemorrhagic cyst. Color-flow to the bilateral ovaries is noted. There is no evidence to suggest ovarian torsion at this time. Trace free fluid is noted in the cul-de-sac. 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 Each horn of the uterus contains a gestational sac possibly representing twin . No pole or yolk sac is noted in either gestational sac at this time, possibly related to early stage of . Trended beta-HCG and [employer] follow-up with short-term interval repeat ultrasound recommended. Probable hemorrhagic cyst in the left ovary. No evidence to suggest ovarian torsion at this time. Small amount of free fluid in the pelvis.
== END 2017-06-28 17:53 | disposition home or self-care (01) ==
LOC: EMR 14:20
DX: O20.0 Threatened abortion (principal); Z3A.01 Less than 8 weeks gestation of pregnancy; O23.591 Infection of other part of genital tract in pregnancy, first trimester; B96.89 Other specified bacterial agents as the cause of diseases classified elsewhere
CPT/HCPCS: 36415; 76801; 76830; 80053; 81003; 83690; 84702; 85025; 85610; 85730; 86850; 86900; 86901; 96360; 99284

== ENCOUNTER 2017-10-03 12:37 | Emergency (ER) | payer MEDICAID ==
[~2017-10-03] VITALS: Ht 167.6 cm; Wt 71.2 kg
[~2017-10-03 12:37] MED LIST changes: +FLAGYL500 MG ORAL; +PRENATAL VITAM1 EACH PO
--- NOTE | 2017-10-03 13:37 | Emergency Room Report ---
History of Present Illness General Chief Complaint: Lower Back Pain or Injury Present Illness HPI 32 YO Female presents to the emergency department complaining of 8/10 in severity Left sided low back pain x 1 day. Patient reports history of back pain with associated herniated disc. Patient states she has had sciatica in the past however her symptoms are usually on the right side. Patient states that she has been doing a lot of housework lately. Patient reports that she is 13 weeks . She denies fevers, chills or recent spinal procedure. Patient denies abdominal pain, nausea, vomiting. Patient states that her symptoms are dependent on certain movements or sitting up a certain way. Patient reports some soreness/tenderness as well. Denies trauma or fall. Denies dysuria, hematuria, urinary frequency or urgency. Denies numbness tingling or loss of sensation or gross motor movements of the extremities, incontinence of bowel or bladder. Denies CP, Palpitations, LOC, AMS, dizziness, Changes in Vision, Sensation, paresthesias, or a sudden severe headache. Allergies: Coded Allergies: No Known Allergies (Unverified , 04/14/16) Patient History Past Medical History: see triage record Past Surgical History: none Pertinent Family History: none Reviewed Nursing Documentation: PMH: Agreed; PSxH: Agreed Nursing Documentation-PMH Hx Gastrointestinal Problems: Yes - Appendectomy Review of Systems All Other Systems: negative except mentioned in HPI Physical Exam Vital Signs Date Time Temp Pulse Resp B/P (MAP) Pulse Ox O2 Delivery O2 Flow Rate FiO2 10/03/17 12:45 98.1 79 20 111/68 97 Room Air 98.1 Medical Decision Making PA Attestation Dr. Lea is my supervising Physician whom patient management has been discussed with. Diagnostic Impression: Primary Impression: Low back pain during Qualified Codes: O26.892 - Other specified related conditions, second trimester; M54.5 - Low back pain ER Course 32 YO Female presents to the emergency department complaining of 8/10 in severity Left sided low back pain x 1 day. Patient reports history of back pain with associated herniated disc. Patient states she has had sciatica in the past however her symptoms are usually on the right side. Patient states that she has been doing a lot of housework lately. Patient reports that she is 13 weeks . She denies fevers, chills or recent spinal procedure. Patient denies abdominal pain, nausea, vomiting. Patient states that her symptoms are dependent on certain movements or sitting up a certain way. Patient reports some soreness/tenderness as well. Denies trauma or fall. Denies dysuria, hematuria, urinary frequency or urgency. Denies numbness tingling or loss of sensation or gross motor movements of the extremities, incontinence of bowel or bladder. Denies CP, Palpitations, LOC, AMS, dizziness, Changes in Vision, Sensation, paresthesias, or a sudden severe headache. Ddx considered: epidural abscess, fracture, sprain/strain, meningitis, renal stone, spinal chord injury. Vital signs reviewed and are WNL during ED visit. - Pt verbalized right sided pain however she is referring to her left side during physical exam. HPI has been adjusted to reflect the correct side of her symptoms. Pt. is afebrile with no signs of infection, non-toxic in appearance. No hx of Disk herniation and lumbar pain. No saddle anesthesia noted, Pt. denies incontinence Neurovascular is intact Pt. has FROM with intermittent exacerbations of her pain during the process. * Mild Tenderness to palpation to paraspinal muscles of the lower back, no spinous process tenderness, no midline tenderness. Most tenderness is palpated just above the left PSIS. ORDERS: none warranted at this time. INTERVENTIONS: - Tylenol PO D/W Pt. To F/u with her OBGYN/PCP regarding pain management if her symptoms continue to get exacerbated during her . DISCHARGE: At this time pt. is stable for d/c to home. Will provide printed patient care instructions, and any necessary prescriptions. Care plan and follow up instructions have been discussed with the patient prior to discharge. Last Vital Signs Date Time Temp Pulse Resp B/P (MAP) Pulse Ox O2 Delivery O2 Flow Rate FiO2 10/03/17 12:45 98.1 79 20 111/68 97 Room Air 98.1 Disposition: XFER SNF Condition: Stable Scripts Hydrocodone Bit/Acetaminophen 5-325* (NORCO 5-325*) 1 Each Tablet 1 TAB ORAL Q6H PRN for For Pain, #4 TAB 0 Refills Prov: Kimberly Peres P.A. 10/03/17 Acetaminophen* (TYLENOL EXTRA STRENGTH*) 500 Mg Tablet 500 MG ORAL Q6H, #20 TAB 0 Refills Prov: Kimberly Peres P.A. 10/03/17 Lidocaine (Lidoderm) 1 Each Adh..patch 1 PATCH TOPIC DAILY, #30 PATCH 0 Refills Patch(es) may remain in place for up to 12 hours in any 24-hour period. Prov: Kimberly Peres 10/03/17 Patient Instructions: Back Pain in , Back Pain, Adult Additional Instructions: Take medications as directed. - Only Take [place] for severe pain, [place] has Tylenol in it, so be mindful of taking any additional Tylenol products. Follow up with a OBGYN within 3 days, even if your symptoms have resolved. Return sooner to ED if new symptoms occur, or current symptoms become worse. - Do not Drive if you take [place] and this medication can cause dizziness. - Please note that this Emergency Department Report was dictated using [employer] technology software, occasionally this can lead to erroneous entry secondary to interpretation by the dictation equipment. Kimberly Peres Oct 03, 2017 13:37
[2017-10-03] MEDS ORDERED: TYLENOL EXTRA500 MG ORAL (13:47)
[2017-10-03] MEDS ORDERED: LIDODERM700 M1 TOPIC (13:47)
[2017-10-03] MEDS ORDERED: NORCO 5-325 TA1 EACH ORAL (13:47)
[2017-10-03 14:02] VITALS: BP 121/70
== END 2017-10-03 14:02 ==
LOC: EMR 13:25
DX: O26.892 Other specified pregnancy related conditions, second trimester (principal); M54.5 Low back pain; Z90.89 Acquired absence of other organs; Z3A.13 13 weeks gestation of pregnancy
CPT/HCPCS: 99284

== ENCOUNTER 2017-11-02 18:14 | Emergency (ER) | payer MEDICAID ==
[~2017-11-02] VITALS: Ht 167.6 cm; Wt 83.0 kg
[~2017-11-02 18:14] MED LIST changes: +LIDODERM700 M1 TOPIC; +NORCO 5-325 TA1 EACH ORAL; +TYLENOL EXTRA500 MG ORAL
[2017-11-02 18:42] VITALS: BP 121/65
--- NOTE | 2017-11-02 19:06 | Emergency Room Report ---
History of Present Illness General Chief Complaint: Flu Like Symptoms Source: Patient Present Illness HPI 32yo F at 22wk gestation p/w mylgias, sore throat, abdominal pain, crampy, diffuse, and subjective fever x 2days Reports her OB is Manuel Zamorano Requests we transfer to [facility] L&D Allergies: Coded Allergies: No Known Allergies (Unverified , 04/14/16) Patient History Past Medical History: see triage record Now: Yes : 3 Para: 3 Reviewed Nursing Documentation: PMH: Agreed; PSxH: Agreed Nursing Documentation-PMH Past Medical History: No History, Except For Hx Gastrointestinal Problems: Yes - Appendectomy Review of Systems All Other Systems: negative except mentioned in HPI Physical Exam Vital Signs Date Time Temp Pulse Resp B/P (MAP) Pulse Ox O2 Delivery O2 Flow Rate FiO2 11/02/17 18:19 99.0 107 22 121/65 97 Room Air 99.0 Sp02 EP Interpretation: reviewed, normal General Appearance: no apparent distress, alert, non-toxic Head: normocephalic Eyes: bilateral eye normal inspection, bilateral eye PERRL, bilateral eye EOMI ENT: normal ENT inspection, hearing grossly normal, normal pharynx, no angioedema, normal voice, moist mucus membranes Neck: normal inspection, full range of motion, supple, supple/symm/no masses Respiratory: chest non-tender, lungs clear, normal breath sounds, chest symmetrical, palpation of chest normal Cardiovascular #1: normal peripheral pulses, regular rate, rhythm Cardiovascular #2: 2+ radial (R), 2+ radial (L) Gastrointestinal: normal inspection, soft, no guarding, no rebound, distended Rectal: deferred Genitourinary: normal inspection, no CVA tenderness Musculoskeletal: back normal, gait/station normal, normal range of motion, non- tender, no calf tenderness Neurologic: alert, responsive, remarketing rep III-XII nml as tested, motor strength/tone normal, sensory intact, speech normal Psychiatric: judgement/insight normal, memory normal, mood/affect normal, no suicidal/homicidal ideation Skin: normal color, no rash, warm/dry, normal turgor Lymphatic: no adenopathy Medical Decision Making Diagnostic Impression: Primary Impression: Abdominal pain ER Course I spoke with OB line construction supervisor at [facility], Dr. Miller, who accepted the patient to L& D for labor evaluation Pt agrees and wants transfer Last Vital Signs Date Time Temp Pulse Resp B/P (MAP) Pulse Ox O2 Delivery O2 Flow Rate FiO2 11/02/17 18:42 107 22 Room Air 11/02/17 18:42 99.0 121/65 97 99.0 Status: unchanged Disposition: XFER SHT-TRM HOSP Condition: Stable Referrals: [facility],REFERRING (PCP) JUANY THOMAS M.D November 02, 2017 19:05
[2017-11-02 20:20] VITALS: BP 123/66
[2017-11-02 23:58] VITALS: BP 123/66
== END 2017-11-02 23:59 | disposition short-term general hospital (02) ==
LOC: EMR 18:37
DX: O26.892 Other specified pregnancy related conditions, second trimester (principal); Z3A.22 22 weeks gestation of pregnancy; R10.9 Unspecified abdominal pain; Z90.49 Acquired absence of other specified parts of digestive tract
CPT/HCPCS: 99285

== ENCOUNTER 2018-11-30 14:13 | Emergency (ER) | payer MEDICAID ==
[~2018-11-30] VITALS: Ht 167.6 cm; Wt 71.2 kg
--- NOTE | 2018-11-30 14:28 | Emergency Room Report ---
History of Present Illness General Chief Complaint: Chest Pain Source: Patient Present Illness HPI 33-year-old female with no medical problems, is 9 months , complaining of 3-week history of intermittent left-sided parasternal sharp, nonradiating mild to moderate intensity chest pains. More severe this morning, also had about yesterday, and has been having nearly daily bouts of it for the past 3 weeks. Patient cannot think of any inciting or exacerbating factors such as positioning, breathing, p.o. intake; she reports the duration lasts minutes to over an hour, and seems to be relieved when patient states still relaxes, and drinks an herbal tea. She denies any hemoptysis, leg swelling, leg pain, syncope, recent travel, major surgeries, OCP, exogenous estrogen use. Allergies: Coded Allergies: No Known Allergies (Unverified , 04/14/16) Patient History Past Medical History: see triage record Now: No Reviewed Nursing Documentation: PMH: Agreed; PSxH: Agreed Nursing Documentation-PMH Hx Gastrointestinal Problems: Yes - Appendectomy, hernia repair Review of Systems All Other Systems: negative except mentioned in HPI Physical Exam Sp02 EP Interpretation: reviewed, normal General Appearance: no apparent distress, alert, non-toxic Head: normocephalic Eyes: bilateral eye normal inspection, bilateral eye PERRL, bilateral eye EOMI ENT: normal ENT inspection, hearing grossly normal, normal pharynx, no angioedema, normal voice, moist mucus membranes Neck: normal inspection, full range of motion, supple, supple/symm/no masses Respiratory: chest non-tender, lungs clear, normal breath sounds, chest symmetrical, palpation of chest normal Cardiovascular #1: normal peripheral pulses, regular rate, rhythm Cardiovascular #2: 2+ radial (R), 2+ radial (L) Gastrointestinal: normal inspection, non tender, soft, no mass, no guarding, no rebound Rectal: deferred Genitourinary: normal inspection, no CVA tenderness Musculoskeletal: back normal, gait/station normal, normal range of motion, non- tender, no calf tenderness, Usama's Sign negative Neurologic: alert, responsive, fireproof door assembler III-XII nml as tested, motor strength/tone normal, sensory intact, speech normal Psychiatric: judgement/insight normal, memory normal, mood/affect normal, anxious Skin: normal color, no rash, warm/dry, normal turgor Lymphatic: no adenopathy Medical Decision Making Diagnostic Impression: Primary Impression: Chest pain ER Course Patient is PERC rule negative for PE, I do not suspect acute coronary syndrome, do not suspect aortic dissection, she is extremely well-appearing, slightly anxious, currently think she is having about a 5 out of 10 pain that was about a 10 out of 10 prior to arrival that seems to have improved without any obvious rhyme or reason. She has been having this pain nearly daily for the past few weeks, she does report she has had a heavy period recently, and she is supposed to be on iron supplementation but has been noncompliant. I doubt she is acutely anemic enough to receive a transfusion, and it is difficult to say whether or not this is contributing to her chest pain, as it appears to be a nonexertional chest pain that she is experiencing. I have higher suspicion for anxiety mediated symptomatology, EKG, labs, chest x-ray all unremarkable, will discharge home with reassurance, recommendation to be compliant with her iron supplementation, and follow-up with PMD within the next week or to return to the ER if symptoms recur and persist. EKG Diagnostic Results EKG Time: 14:47 EP Interpretation: no STEMI, normal axis Rate: normal Rhythm: NSR ST Segments: no acute changes ASA given to the pt in ED: No Rhythm Strip Diag. Results Rhythm Strip Time: 14:57 EP Interpretation: yes Rate: 64 Rhythm: NSR, no PVC's, no ectopy Chest X-Ray Diagnostic Results Chest X-Ray Diagnostic Results : Chest X-Ray Ordered: Yes # of Views/Limited/Complete: 1 View Indication: Chest Pain Interpretation: no consolidation, no effusion, no pneumothorax, no acute cardiopulmonary disease Impression: No acute disease Electronically Signed by: Juany Thomas MD Disposition: HOME, SELF-CARE Condition: Stable JUANY THOMAS M.D Nov 30, 2018 14:28
[2018-11-30 14:40] LABS: BASOPHILS % (AUTO) 0.5 % (0.0-2.0); EOSINOPHILS % (AUTO) 1.4 % (0.0-3.0); HEMATOCRIT 35.1 % (37.0-47.0); LYMPHOCYTES % (AUTO) 26.9 % (20.0-45.0); MEAN CORPUSCULAR VOLUME 80 FL (80-99); MONOCYTES % (AUTO) 7.6 % (1.0-10.0); NEUTROPHILS % (AUTO) 63.5 % (45.0-75.0); PLATELET COUNT 332 K/UL (150-450); RED BLOOD COUNT 4.38 M/UL (4.20-5.40); WHITE BLOOD COUNT 9.2 K/UL (4.8-10.8)
[2018-11-30 14:48] LABS: ANION GAP 9 mmol/L (5-15); BLOOD UREA NITROGEN 10 mg/dL (7-18); CALCIUM 9.5 MG/DL (8.5-10.1); CARBON DIOXIDE 26 MMOL/L (21-32); CHLORIDE 103 MMOL/L (98-107); CREATININE 0.8 MG/DL (0.55-1.30); POTASSIUM 3.7 MMOL/L (3.5-5.1); SODIUM 138 MMOL/L (136-145)
[2018-11-30 14:53] LABS: ALANINE AMINOTRANSFERASE 28 U/L (12-78); ALBUMIN 3.9 G/DL (3.4-5.0); ALKALINE PHOSPHATASE 73 U/L (46-116); ASPARTATE AMINO TRANSFERASE 20 U/L (15-37); BILIRUBIN,TOTAL 0.3 MG/DL (0.2-1.0)
[2018-11-30 14:59] VITALS: BP 109/70
[2018-11-30] MEDS ORDERED: IBUPROFEN600 MG ORAL (15:01)
[2018-11-30 15:25] VITALS: BP 110/63
--- NOTE | 2018-12-01 17:46 | Diagnostic Imaging Report ---
Indication: Dyspnea Comparison: None A single view chest radiograph was obtained. Findings: Cardiomediastinal appearance is within normal limits for age. The lungs are clear. Pulmonary vascularity is appropriate. The diaphragmatic contour is smooth and costophrenic angles are sharp. No pleural effusions are identified. The bones are unremarkable. Impression: No acute findings
== END 2018-11-30 15:25 | disposition home or self-care (01) ==
LOC: EMR 14:45
DX: R07.9 Chest pain, unspecified (principal); Z90.49 Acquired absence of other specified parts of digestive tract
CPT/HCPCS: 36415; 71045; 80053; 84484; 85025; 93005; 99283

== ENCOUNTER 2019-12-09 17:51 | Emergency (ER) | payer MEDICAID, OTHER ==
[~2019-12-09] VITALS: Ht 167.6 cm; Wt 77.1 kg
[2019-12-09 18:15] VITALS: BP 123/76
--- NOTE | 2019-12-09 18:15 | NUR ---
ED Nurse Note: Pt ambulated to ED from home d/t vomiting and abdominal pain started this morning. Pt is AOx4, calm and cooperative. Per pt, today's her 4th day of menstruation. Placed on bed, daughter at bedside.
[2019-12-09] MEDS ORDERED: Morphine Sulfate 4mg/ml Inj (IV USE ONLY) IVP ONE (18:30)
[2019-12-09] MEDS ORDERED: DiphenhydrAMINE 50mg/ml Inj IVP ONE (18:30)
[2019-12-09] MEDS ORDERED: Metoclopramide 10mg/2ml Inj IVP ONE (18:30)
--- NOTE | 2019-12-09 18:34 | Emergency Room Report ---
History of Present Illness General Chief Complaint: Abdominal Pain Source: Patient Present Illness HPI Patient presents with right lower quadrant abdominal pain that radiates to her back that began yesterday. She tried taking 400 mg ibuprofen and this did not help. She has had pain similar to this but not this severe not radiating related to ovarian cysts and also fibroids. She is on day 4 for menstruation. It is regular time for her. She does not believe she is . She denies any fevers or chills. There is no dysuria or vaginal discharge. She in a monogamous relationship. Patient came today because she is vomiting and cannot keep anything down. There is no blood or coffee grounds. She denies change in her bowels. The pain is rated 10/10, constant pressure and somewhat burning. She denies fevers or chills. No sore throat, chest pain, palpitations, shortness of breath, joint pain, rashes, depression, anxiety, visual changes, dizziness, headache. Her daughter is being seen for diaper rash. Allergies: Coded Allergies: No Known Allergies (Unverified , 04/14/16) COVID-19 Screening Contact w/high risk pt: No Recent Travel to affected area: No Experienced COVID-19 symptoms?: No COVID-19 Testing performed BUYER GRAIN: No Patient History Social History: Denies: smoking Social History Narrative Here with and children. 3-year-old being seen for diaper dermatitis Last Menstrual Period: on her period Now: No Reviewed Nursing Documentation: PMH: Agreed; PSxH: Agreed Nursing Documentation-PMH Past Medical History: No History, Except For Hx Gastrointestinal Problems: Yes - Appendectomy, hernia repair Review of Systems All Other Systems: negative except mentioned in HPI Physical Exam Vital Signs Date Time Temp Pulse Resp B/P (MAP) Pulse Ox O2 Delivery O2 Flow Rate FiO2 12/09/19 18:02 99.0 78 20 123/76 (92) 96 Room Air Sp02 EP Interpretation: reviewed, normal General Appearance: well appearing, no apparent distress, GCS 15, non-toxic Head: normocephalic, atraumatic Eyes: bilateral eye normal inspection, bilateral eye PERRL, bilateral eye EOMI ENT: moist mucus membranes Neck: supple Respiratory: lungs clear, normal breath sounds Cardiovascular #1: regular rate, rhythm Cardiovascular #2: 2+ radial (R) Gastrointestinal: normal inspection, normal bowel sounds, no mass, non- distended, no guarding, no rebound, tenderness - Reported right lower quadrant Genitourinary: no CVA tenderness Musculoskeletal: back normal, normal range of motion, gait/station normal Neurologic: alert, oriented x3, grossly normal Psychiatric: mood/affect normal Skin: no rash, warm/dry Medical Decision Making Diagnostic Impression: Primary Impression: Pelvic pain Additional Impressions: Fibroid Hemorrhagic ovarian cyst UTI (urinary tract infection) Qualified Codes: N39.0 - Urinary tract infection, site not specified ER Course Patient presents with right lower quadrant pain rating to her back. Differential includes ectopic , pyelonephritis, ovarian cyst, uterine fibroids, PID amongst others. She is afebrile at this time and therefore PID is less likely. Evaluation with labs and ultrasound. The patient received IV hydration admit metoclopramide, Benadryl and morphine. If test is negative she will may be given ketorolac also if she still has pain. White count normal. Slight anemia. CMP normal. Lipase normal. test negative. Pyuria and hematuria (recent ending of her.). Ultrasound performed revealing fibroid and hemorrhagic ovarian cyst. Patient's pain resolved. Discussed findings with patient and need for follow-up. Patient stable for outpatient observation admission and treatment. Laboratory Tests Test 12/09/19 18:44 White Blood Count 10.5 K/UL (4.8-10.8) Red Blood Count 4.51 M/UL (4.20-5.40) Hemoglobin 10.5 G/DL (12.0-16.0) L Hematocrit 35.0 % (37.0-47.0) L Mean Corpuscular Volume 78 FL (80-99) L Mean Corpuscular Hemoglobin 23.2 PG (27.0-31.0) L Mean Corpuscular Hemoglobin Concent 29.8 G/DL (32.0-36.0) L Red Cell Distribution Width 17.0 % (11.6-14.8) H Platelet Count 330 K/UL (150-450) Mean Platelet Volume 6.7 FL (6.5-10.1) Neutrophils (%) (Auto) 75.1 % (45.0-75.0) H Lymphocytes (%) (Auto) 17.4 % (20.0-45.0) L Monocytes (%) (Auto) 6.5 % (1.0-10.0) Eosinophils (%) (Auto) 0.4 % (0.0-3.0) Basophils (%) (Auto) 0.6 % (0.0-2.0) Urine Color Yellow Urine Appearance Cloudy Urine pH 7 (4.5-8.0) Urine Specific [place] 1.015 (1.005-1.035) Urine Protein 2+ (NEGATIVE) H Urine Glucose (UA) Negative (NEGATIVE) Urine Ketones 4+ (NEGATIVE) H Urine Blood 5+ (NEGATIVE) H Urine Nitrite Negative (NEGATIVE) Urine Bilirubin Negative (NEGATIVE) Urine Urobilinogen Normal MG/DL (0.0-1.0) Urine Leukocyte Esterase 1+ (NEGATIVE) H Urine RBC 40-60 /HPF (0 - 2) H Urine WBC 10-15 /HPF (0 - 2) H Urine Squamous Epithelial Cells Moderate /LPF (NONE/OCC) H Urine Bacteria Moderate /HPF (NONE) H Urine Mucus Few /LPF (NONE/OCC) H Sodium Level 140 MMOL/L (136-145) Potassium Level 3.8 MMOL/L (3.5-5.1) Chloride Level 103 MMOL/L (98-107) Carbon Dioxide Level 24 MMOL/L (21-32) Anion Gap 13 mmol/L (5-15) Blood Urea Nitrogen 12 mg/dL (7-18) Creatinine 0.9 MG/DL (0.55-1.30) Estimated Glomerular Filtration Rate > 60 mL/min (>60) Glucose Level 100 MG/DL (74-106) Calcium Level 8.9 MG/DL (8.5-10.1) Total Bilirubin 0.3 MG/DL (0.2-1.0) Aspartate Amino Transferase (AST) 20 U/L (15-37) Alanine Aminotransferase (ALT) 28 U/L (12-78) Alkaline Phosphatase 67 U/L (46-116) Total Protein 7.5 G/DL (6.4-8.2) Albumin 4.0 G/DL (3.4-5.0) Globulin 3.5 g/dL Albumin/Globulin Ratio 1.1 (1.0-2.7) Lipase 92 U/L (73-393) CT/MRI/US Diagnostic Results CT/MRI/US Diagnostic Results : Imaging Test Ordered: Pelvic ultrasound Impression IMPRESSION: 1. Fibroid uterus. 2. Hemorrhagic left ovarian follicle. Last Vital Signs Date Time Temp Pulse Resp B/P (MAP) Pulse Ox O2 Delivery O2 Flow Rate FiO2 12/09/19 22:10 98.9 68 12 125/75 100 Room Air Status: improved Disposition: HOME, SELF-CARE Condition: Improved Scripts Ondansetron Odt* (ZOFRAN ODT*) 4 Mg Tab.rapdis 4 MG BC EVERY 8 HOURS, #6 TAB 0 Refills Prov: Ricardo Daugherty MD 12/09/19 Ibuprofen* (MOTRIN*) 600 Mg Tablet 600 MG ORAL Q6H PRN for FOR PAIN, #16 TAB 0 Refills Prov: Ricardo Daugherty MD 12/09/19 Nitrofurantoin Monohyd/M-Cryst* (MACROBID 100 MG*) 100 Mg Capsule 100 MG ORAL EVERY 12 HOURS, #14 CAP Prov: Ricardo Daugherty MD 12/09/19 Ricardo Daugherty MD Dec 09, 2019 18:34
[2019-12-09 18:57] LABS: APPEARANCE,URINE CLOUDY; BILIRUBIN, URINE NEGATIVE (NEGATIVE); GLUCOSE, URINE (UA) NEGATIVE (NEGATIVE); KETONES,URINE 4+ (NEGATIVE); LEUKOCYTE ESTERASE ,URINE 1+ (NEGATIVE); NITRITE,URINE NEGATIVE (NEGATIVE); PH,URINE 7 (4.5-8.0); PROTEIN,URINE 2+ (NEGATIVE); UROBILINOGEN,URINE NORMAL MG/DL (0.0-1.0)
[2019-12-09 19:05] LABS: COLOR,URINE YELLOW
[2019-12-09 19:06] LABS: BASOPHILS % (AUTO) 0.6 % (0.0-2.0); EOSINOPHILS % (AUTO) 0.4 % (0.0-3.0); HEMOGLOBIN 10.5 G/DL (12.0-16.0); LYMPHOCYTES % (AUTO) 17.4 % (20.0-45.0); MEAN CORPUSCULAR VOLUME 78 FL (80-99); MONOCYTES % (AUTO) 6.5 % (1.0-10.0); NEUTROPHILS % (AUTO) 75.1 % (45.0-75.0); PLATELET COUNT 330 K/UL (150-450); RED BLOOD COUNT 4.51 M/UL (4.20-5.40); WHITE BLOOD COUNT 10.5 K/UL (4.8-10.8)
[2019-12-09 19:10] LABS: ANION GAP 13 mmol/L (5-15); BLOOD UREA NITROGEN 12 mg/dL (7-18); CALCIUM 8.9 MG/DL (8.5-10.1); CARBON DIOXIDE 24 MMOL/L (21-32); CHLORIDE 103 MMOL/L (98-107); CREATININE 0.9 MG/DL (0.55-1.30); POTASSIUM 3.8 MMOL/L (3.5-5.1); SODIUM 140 MMOL/L (136-145)
--- NOTE | 2019-12-09 19:10 | NUR ---
ED Nurse Note: hand off given to STEPHANIE Alford for continuity of care.
--- NOTE | 2019-12-09 19:10 | NUR ---
ED Nurse Note: Report received from STEPHANIE Valdes. Pt is resting in bed.
[2019-12-09 19:15] LABS: ALANINE AMINOTRANSFERASE 28 U/L (12-78); ALBUMIN/GLOBULIN RATIO 1.1 (1.0-2.7); ALKALINE PHOSPHATASE 67 U/L (46-116); ASPARTATE AMINO TRANSFERASE 20 U/L (15-37); BILIRUBIN,TOTAL 0.3 MG/DL (0.2-1.0)
[2019-12-09 19:55] VITALS: BP 127/76
--- NOTE | 2019-12-09 20:50 | NUR ---
ED Nurse Note: US bedside.
--- NOTE | 2019-12-09 21:49 | Diagnostic Imaging Report ---
EXAM: US Pelvis Transabdominal and Transvaginal, Complete CLINICAL HISTORY: ABD PAIN TECHNIQUE: Real-time complete transabdominal and transvaginal pelvic ultrasound with image documentation. Transvaginal imaging was used for better evaluation of the endometrium and adnexa. COMPARISON: Correlation with CT pelvis dated 06/12/18. FINDINGS: Uterus/cervix: The uterus measures 7.7 x 7.3 x 4.3 cm. The endometrial stripe measures 10 mm in thickness. There is a 3.3 cm intramural fibroid in the right aspect of the uterus. Right ovary: The right ovary measures 3.8 x 1.8 x 3.1 cm and shows a 6 mm echogenic focus which is probably a focus of hemorrhage within a follicle or dystrophic calcification. Normal blood flow. Left ovary: The left ovary measures 3.8 x 2.0 x 3.0 cm and shows a hemorrhagic follicle measuring 2.2 x 1.6 cm. Normal blood flow. Free fluid: No free fluid. Bladder: Unremarkable as visualized. Wall is normal thickness for degree of distention. IMPRESSION: 1. Fibroid uterus. 2. Hemorrhagic left ovarian follicle.
[2019-12-09] MEDS ORDERED: IBUPROFEN600 M1 ORAL (22:02)
[2019-12-09] MEDS ORDERED: ONDANSETRON ODT4 MG BC (22:02)
[2019-12-09] MEDS ORDERED: NITROFURANTOIN100 M2 ORAL (22:02)
[2019-12-09 22:10] VITALS: BP 125/75
--- NOTE | 2019-12-09 22:10 | NUR ---
ER DISCHARGE NOTE: Patient is cleared to be discharged per ERMD, pt is aox4, on room air, with stable vital signs. pt was given dc and prescription instructions, pt was able to verbalize understanding, pt id band and iv site removed without complications. pt is able to ambulate with steady gait. pt took all belongings.
== END 2019-12-09 22:10 | disposition home or self-care (01) ==
LOC: EMR 18:45
DX: N39.0 Urinary tract infection, site not specified (principal); N83.202 Unspecified ovarian cyst, left side; D25.9 Leiomyoma of uterus, unspecified; Z90.89 Acquired absence of other organs
CPT/HCPCS: 36415; 76830; 76856; 80053; 81003; 83690; 85025; 87086; 96361; 96374; 96375; 99284; J1200; J2270; J2765; J7030